=== PATIENT | female | born 1945 | race Caucasian/White ===

== ENCOUNTER → 2016-12-14 | Outpatient (CLI) | payer OTHER ==
[~2016-12-14] MED LIST: THROMBIN (RECOMBINANT) 5,000 UNIT VIAL TP ONE
--- NOTE | 2016-12-14 16:25 | MA ---
Diagnostic Digital right breast Mammogram 12/14/2016 14:34 History: Status post ultrasound-guided right breast biopsy. Assess for clip deployment.. Comparison: November 01, 2016.. Technique: CC and lateral medial right breast mammograms are obtained.. Findings: From the prior study, there has been performance of an ultrasound-guided right breast biops y with excellent removal of a significant portion of a spiculated density in the upper outer quadrant , 2 separate biopsy localization clips have been deployed at the site of biopsy bridging the area of mammographic concern.. Impression: Successful ultrasound-guided biopsy of the right breast with clip deployment. Patient was given after care instructions after completion of the procedure. Recommendation: Await histology.
--- NOTE | 2016-12-14 16:28 | US ---
Ultrasound-guided biopsy of the right breast. 12/14/2016. History: Abnormal mammogram and ultrasound, right breast. Patient is a nonsmoker. Technique: Informed consent was obtained after explaining risks of the procedure including risk of bl eeding and infection. A timeout was performed. Using standard sterile technique, lidocaine local anesthesia, and direct ultrasound guidance, the Brian os 12-gauge core biopsy system was advanced into the upper outer quadrant of the right breast from a lateral approach, the needle placed posterior to the area of sonographic abnormality. Subsequently, a pproximate 5 core biopsy samples were obtained with significant decrease in size of the sonographic l esion. I initially attempted to deploy a metallic localization clip at the site of biopsy, but the cl ip remained stuck on the distal tip of the introducer sheath. Therefore, a second clip was deployed, which also pushed the original clip out, such that 2 clips are present on postprocedure mammography. Introducer needle was removed and hemostasis was achieved with manual compression. Impression: 1. Successful ultrasound-guided biopsy of a small spiculated mass upper outer quadrant right breast.
[2016-12-21 13:19] LABS: ACCESSION # HR17-6905; INTERPRETATION See Comments
== END | disposition home or self-care (01) ==
LOC: FIMAGING 14:28
PROVIDERS: ATTEND Radiology Diagnostic Radiology
PROC: 0HBT3ZX Excision of Right Breast, Percutaneous Approach, Diagnostic (ICD-10-PCS; principal; 2016-12-14)
DX: C50.411 Malignant neoplasm of upper-outer quadrant of right female breast (principal); Z17.0 Estrogen receptor positive status [ER+]
CPT/HCPCS: 19083; 88305; 88341; 88342; 88360; 88361; G0206

== ENCOUNTER → 2016-12-28 | Outpatient (CLI) | payer OTHER | LOC: FIMAGING 08:39 | PROVIDERS: ATTEND Surgery | DX: Z12.39 Encounter for other screening for malignant neoplasm of breast (principal); C50.911 Malignant neoplasm of unspecified site of right female breast ==

== ENCOUNTER 2017-01-06 07:34 | Day surgery (SDC) | payer OTHER ==
[2017-01-06] MEDS ORDERED: LIDOCAINE 1% 5 ML SDV ONE (08:15)
[2017-01-06] MEDS ORDERED: ceFAZolin 2 GM/DEXTROSE 100 ML IV ONE (10:30)
[2017-01-06] MEDS ORDERED: BUPIVACAINE 0.25% 30 ML SDV ONE (10:54)
[2017-01-06] MEDS ORDERED: ISOSULFAN BLUE SC ONE (10:56)
[2017-01-06] MEDS ORDERED: MIDAZOLAM 2 MG/2 ML VIAL ONE (11:22)
[2017-01-06] MEDS ORDERED: fentaNYL 250 MCG/5 ML INJ ONE (11:30)
[2017-01-06] MEDS ORDERED: PROPOFOL 200 MG/20 ML VIAL ONE ×2 (11:30→12:05)
[2017-01-06] MEDS ORDERED: ONDANSETRON 4 MG/2 ML VIAL ONE (11:30)
[2017-01-06] MEDS ORDERED: DEXAMETHASONE 4 MG/ML VIAL ONE (11:30)
[2017-01-06] MEDS ORDERED: LIDOCAINE 2% 5 ML SDV ONE (11:30)
[2017-01-06] MEDS ORDERED: epHEDrine SULFATE 10 MG/ML SYR ONE (11:52)
[2017-01-06] MEDS ORDERED: fentaNYL 100 MCG/2 ML INJ ONE (13:39)
[2017-01-06] MEDS ORDERED: OXYCODONE/APAP 5/325 TAB ONE (14:58)
[2017-01-06] MEDS ORDERED: OXYCODONE/APAP 5/325 TAB PO PRN (15:02)
[2017-01-06] MEDS ORDERED: ONDANSETRON 4 MG/2 ML VIAL IVP PRN (15:03)
--- NOTE | 2017-01-06 19:59 | GOP ---
DATE OF OPERATION: 01/06/2017 SURGEON: Paulino Gomez MD PATHOLOGY TECHNOLOGIST: GETACHEW Castillo ANESTHESIA: General by laryngeal mask. ANESTHESIOLOGIST: Eldon Shipley MD PREOPERATIVE DIAGNOSIS: Right breast invasive ductal carcinoma. POSTOPERATIVE DIAGNOSIS: Right breast invasive ductal carcinoma. PROCEDURE PERFORMED: 1. Right partial mastectomy. 2. [place] lymph node mapping and biopsy. 3. Left breast local tissue flap reconstruction and implantation of absorbable marker (BioSorb). FINDINGS: Solitary sentinel node showing no evidence of metastatic malignancy on frozen section. A dditional non sentinel bette tissue submitted for permanent section. Partial mastectomy specimen hernandez bmitted for specimen mammogram, confirming the clip and tumor to be within the specimen, in addition to some adjacent calcifications. Specimens submitted for permanent section marked with the [employer] Samurai arker kit for orientation. Reconstruction of the cavity via local tissue flap. Rearrangement over a 2 x 3 cm BioSorb tissue marker. DESCRIPTION OF PROCEDURE: After informed consent was obtained, the patient was brought to the opera ting room and placed under general anesthesia. The right breast and chest wall were prepped and anthony ped in usual fashion. She had undergone preoperative sentinel lymph node injection and lymphoscinti graphy which failed to show the location of the sentinel node. She had a wire placed by mammogram g uidance in the upper-outer quadrant positioned very close to the previously deployed clip and residu al tumor in the upper-outer quadrant. The wire exiting the breast was then in approximately the 10 o'clock position, directed cephalad and medially. Before proceeding, a time-out and identification of the patient was performed. The axilla was interrogated with the gamma probe and the point of maximum intensity identified marke d on the skin with a marking pen. The skin was infiltrated with 0.25% Marcaine, incised transversel y, and dissection carried through skin subcutaneous tissues in superficial axillary fascia. The paty p axillary tissues were dissected and the sentinel node was identified in the lower level 1 chain. It was dissected from the surrounding fibrofatty tissue of the axilla and vascular structures were h emo clipped and divided. The node was removed and registered counts somewhat over 200 counts per mi nute. Additional interrogation of the axilla revealed 1 additional area of increased uptake and the small amount of fatty tissue that was removed showed no evidence of increased activity and this was felt to be artifactual. This was submitted as nonaxillary sentinel tissue. No additional increase d uptake was observed within the axilla and there were no pathologically enlarged nodes palpable or visible. The deep tissues were infiltrated with 0.25% Marcaine, subcutaneous tissues were approxima erwin with 3-0 Monocryl suture, and skin was closed with 4-0 Monocryl suture in a subcuticular fashion . Subsequently pathology reported no evidence of metastatic malignancy within the sentinel node. While we were waiting for the frozen section of the sentinel node, the partial mastectomy was perfor med as follows: A circumareolar oriented incision was made part way between the areola and the area of the tumor after infiltrating the skin with 0.25% Marcaine. Dissection through the skin subcutan eous tissues mobilized the wire into the incision. The breast tissue around the tip and shaft of th e wire was widely excised down to the pectoralis. Specimen was removed from the field and oriented with a MarginMarker kit, individually designating the superior, inferior, medial, lateral, anterior and posterior margins. Hemostasis was secured with cautery. The specimen was submitted for a speci men mammogram, and then permanent section. While we were waiting for the specimen mammogram, I performed an oncoplastic procedure to reconstruc t the breast for the resultant defect. Local tissue flaps were mobilized several centimeters in eac h direction from the lumpectomy cavity. The cavity itself was sized with a BioSorb sizer and a 2 x 3 cm BioSorb marker was brought onto the field and placed into the depths of the cavity. This was s ecured to the breast tissue circumferentially with interrupted 3-0 Monocryl sutures. Superficial to this, the adjacent tissue flaps were approximated over the BioSorb marker with interrupted 3-0 Brown cryl sutures, resulting in a nice reconstruction without contour defects. Subcutaneous tissues were closed with 3-0 Monocryl suture. Skin was closed with 4-0 Monocryl suture in a subcuticular fashio n. Radiology confirmed the removal of the clip and residual tumor within the specimen and it was hernandez bmitted for permanent section. Mastisol, Steri-Strips, and sterile dressings were applied. Needle, sponge, and instrument count were correct. Estimated blood loss was 25 mL or less. Complications n one. /[id number]/MODL
== END 2017-01-06 15:48 | disposition home or self-care (01) ==
LOC: FIMAGING 07:34 → EEVIPCON 13:00 → FIMAGING 15:48
PROVIDERS: ATTEND Surgery
PROC: 0HBT0ZZ Excision of Right Breast, Open Approach (ICD-10-PCS; principal; 2017-01-06 11:30)
PROC: 07B50ZX Excision of Right Axillary Lymphatic, Open Approach, Diagnostic (ICD-10-PCS; principal; 2017-01-06 11:30)
DX: C50.411 Malignant neoplasm of upper-outer quadrant of right female breast (principal)
CPT/HCPCS: 19302; 76098; 78195; A9520; C9728; J0690; J1100; J2250; J2405; J2704; J3010

== ENCOUNTER → 2017-05-22 | Outpatient (CLI) | payer OTHER | LOC: FIMAGING 08:50 | PROVIDERS: ATTEND Internal Medicine Hematology & Oncology | DX: M81.0 Age-related osteoporosis without current pathological fracture (principal); C50.411 Malignant neoplasm of upper-outer quadrant of right female breast ==

== ENCOUNTER → 2017-08-25 | Outpatient (CLI) | payer OTHER | LOC: FIMAGING 08:56 | PROVIDERS: ATTEND Internal Medicine Hematology & Oncology | DX: Z12.31 Encounter for screening mammogram for malignant neoplasm of breast (principal); Z85.3 Personal history of malignant neoplasm of breast | CPT/HCPCS: G0202 ==

== ENCOUNTER → 2018-08-27 | Outpatient (CLI) | payer OTHER | LOC: FIMAGING 09:09 | PROVIDERS: ATTEND Internal Medicine Hematology & Oncology | DX: Z12.31 Encounter for screening mammogram for malignant neoplasm of breast (principal) ==